=== PATIENT | female | born 1955 | race Caucasian/White ===

== ENCOUNTER 2017-06-05 12:00 | Inpatient (IN) | payer OTHER ==
[2017-06-05 12:40] VITALS: BMI 35.0
[2017-06-09] MEDS ORDERED: Fentanyl 100 MCG/2 ML VIAL ONE ×4 (06:15→11:22)
[2017-06-09] MEDS ORDERED: Midazolam HCl 2 mg/2 ml Vial ONE (06:15)
--- NOTE | 2017-06-09 06:30 | HP ---
DATE OF ADMISSION: 06/09/2017 CHIEF COMPLAINT: Pelvic pressure and stress urinary incontinence. HISTORY OF PRESENT ILLNESS: This is a 62-year-old P2 with a past medical history significant for type 2 diabetes, hyperlipidemia, chronic hypertension, history of coronary artery disease, and hypothyroidism who presented complaining of severe stress urinary leakage as well as pelvic pressure in vaginal vault. She was found to have uterovaginal prolapse as well as cystocele and rectocele stage 3. The patient attempted relief of incontinence with Myrbetriq as well as ring pessary; however, both of these failed. She desires to undergo definitive surgery. She has been cleared by Cardiology as well as primary care provider. Her last hemoglobin A1c was 8.3. The patient currently takes insulin twice daily and Januvia and has moderate control. PAST MEDICAL HISTORY: Type 2 diabetes, hyperlipidemia, chronic hypertension, coronary artery disease in 2012, hypothyroidism. Last echo dated 2015 showed EF of 65% to 70%, normal left ventricular wall thickness and size, mild aortic regurgitation. PAST SURGICAL HISTORY: x1, tubal ligation, cholecystectomy, and gastric sleeve 2009. FAMILY HISTORY: Diabetes, heart disease, stroke, hypertension, and renal failure. MEDICATIONS: Astepro 1 drop in each nostril daily, Flonase one spray intranasal daily, multivitamin, vitamin D, Krill oil, B complex, probiotic, Colace b.i.d., baby aspirin, valsartan 160 mg p.o. daily, Westhroid 66 mg p.o. daily, Lipitor 40 mg p.o. at bedtime, iron, Prempro 0.625-5 mg daily, Januvia 100 mg p.o. daily, Lantus 25 units q.a.m. and 5 units q.p.m. p.r.n. blood sugar greater than 200. ALLERGIES: HYDROCODONE causes difficulty breathing. SOCIAL HISTORY: Negative x3. Currently . PHYSICAL EXAMINATION: VITAL SIGNS: Blood pressure 120/60, weight 201, height 63, BMI is 35.6. GENERAL: No acute distress. LUNGS: Clear to auscultation bilaterally. ABDOMEN: Soft, nontender, nondistended. EXTREMITIES: No edema, cyanosis or clubbing. PELVIC: Deferred to the OR. ASSESSMENT AND PLAN: A 62-year-old P2 with symptomatic uterovaginal prolapse, cystocele and rectocele as well as genuine stress incontinence demonstrated on urodynamic study. The patient was found to leak urine with cough and Valsalva, did not have evidence of overactive bladder and UPPs were 18 and 20. I have counseled the patient on surgical intervention with robotic-assisted total laparoscopic hysterectomy, bilateral salpingo-oophorectomy, vaginal vault suspension with uterosacral, TVT mid-urethral sling, anterior-posterior repair and cystoscopy. I counseled the patient the risks of surgery including bleeding , transfusion, infection, damage to surrounding structure including the bladder and ureter discussed risk of urinary urgency postoperatively and need for catheterization. We also discussed the risk of recurrent prolapse following surgery. The patient understands and wishes to proceed. Preoperative holding of Lantus the night before surgery in the a.m., was instructed to the patient, and she has also been off her aspirin for 4 days. She has been cleared by Cardiology and primary care. Secondary to patient's severe allergy to HYDROCODONE, plan to use On-Q pain pump for postoperative pain relief. The patient will follow up with me in 2 weeks postoperative time. OMAYRA
[2017-06-09] MEDS ORDERED: Ropivacaine 0.2% 550 ML 550 ML NERVE BLCK SCH (07:06)
[2017-06-09] MEDS ORDERED: Ropivacaine HCl/PF 750 ML in Premix Bag 1 BAG NERVE BLCK SCH (07:30)
[2017-06-09] MEDS ORDERED: Lidocaine 2% PF 10 ML AMP (For Epidural Use) ONE (07:41)
[2017-06-09] MEDS ORDERED: Glycopyrrolate 0.2 MG/ML 5 ML SYRINGE ONE (07:41)
[2017-06-09] MEDS ORDERED: Propofol 200 MG/20 ML VIAL ONE (07:41)
[2017-06-09] MEDS ORDERED: Dexamethasone 20 MG/5 ML VIAL ONE (07:41)
[2017-06-09] MEDS ORDERED: ePHEDrine/0.9% NaCl/PF SYRINGE 50 mg/10 ml ONE (07:41)
[2017-06-09] MEDS ORDERED: traMADol HCl 50 MG TAB PO PRN (07:42)
[2017-06-09] MEDS ORDERED: diphenhydrAMINE HCl 25 MG CAP PO PRN (07:42)
[2017-06-09] MEDS ORDERED: Ondansetron HCl/PF 4 MG/2 ML Vial IVP PRN ×2 (07:42→10:58)
[2017-06-09] MEDS ORDERED: Promethazine HCl 25 MG/ML VIAL IM PRN ×2 (07:42→10:58)
[2017-06-09] MEDS ORDERED: Bisacodyl 10 MG SUPP PR PRN (07:42)
[2017-06-09] MEDS ORDERED: Zolpidem Tartrate 5 MG TAB PO PRN (07:42)
[2017-06-09] MEDS ORDERED: Acetaminophen 325 MG TAB PO PRN (07:42)
[2017-06-09] MEDS ORDERED: Dextrose 5% in Water 1,000 ML IV PRN (07:47)
[2017-06-09] MEDS ORDERED: Metoprolol Tartrate 5 MG/5 ML VIAL IVP PRN (07:47)
[2017-06-09] MEDS ORDERED: Insulin Regular 300 UNITS/3 ML VIAL SC PRN (07:47)
[2017-06-09] MEDS ORDERED: Dextrose 50% Abboject 50 ML SYRINGE SLOW IVP PRN (07:47)
[2017-06-09] MEDS ORDERED: Lidocaine 1% w/Epinephrine 1:200K 30 ML VIAL ONE (08:06)
[2017-06-09] MEDS ORDERED: Bupivacaine PF 0.5% 30 ML VIAL ONE (08:55)
[2017-06-09] MEDS ORDERED: Furosemide 20 MG/2 ML VIAL ONE (09:58)
[2017-06-09] MEDS ORDERED: Promethazine HCl 25 MG/ML VIAL SLOW IVP PRN (10:58)
--- NOTE | 2017-06-09 12:03 | OP ---
DATE OF OPERATION: 06/09/2017 PREOPERATIVE DIAGNOSES: 1. Incomplete uterovaginal prolapse, symptomatic. 2. Cystocele. 3. Rectocele. 4. Genuine stress incontinence. POSTOPERATIVE DIAGNOSES: 1. Incomplete uterovaginal prolapse, symptomatic. 2. Cystocele. 3. Rectocele. 4. Genuine stress incontinence. PROCEDURE: Robotic assisted total laparoscopic hysterectomy, bilateral salpingo-oophorectomy, utero sacral ligament suspension, posterior colporrhaphy, midurethral sling and cystoscopy and ON-Q pump p lacement. ANESTHESIA: General endotracheal. ATTENDING SURGEON: Angelina Osorio M.D. BAGGAGE HANDLING SUPERVISOR: Karen Harris M.D. ESTIMATED BLOOD LOSS: 50 mL. INTRAVENOUS FLUIDS: 1400 mL crystalloid. URINE OUTPUT: 150 mL of clear urine. PATHOLOGY: Uterus, cervix, bilateral fallopian tubes and ovaries. COMPLICATIONS: None. DRAINS: Pedersen catheter. FINDINGS: On exam under anesthesia, a mobile small uterus was noted, sounded to 8 cm. On intra-abd ominal survey the upper abdomen was normal. There was a strand of adhesions from the mid uterus ant eriorly to the anterior abdominal wall. There was no other significant adhesions. The fallopian tu bes and ovaries were normal bilaterally. On cystoscopic survey there were no bladder masses or lesi ons. There was no injury or cystotomy. The sling did not enter into the bladder and correct placem ent was noted. There was bilateral ureteral efflux noted as well. Vaginal packing was placed at th e conclusion of the procedure. OPERATIVE TECHNIQUE: The patient was taken to the operating room where general anesthesia was obtai megan without difficulty. The patient was prepped and draped in a sterile fashion in the dorsal litho alicia position. A speculum was placed in the vagina. Pedersen catheter was placed in the bladder. The anterior lip of the cervix was grasped with a single tooth tenaculum. The cervix was dilated and s ounded to 8 cm. The SUGAR manipulator was assembled with a 4 cm colpotomizer ring and an 8 cm tip. The manipulator tip was inserted to the uterine fundus. The tip balloon was inflated, instruments w ere removed out of the vagina and the colpotomizer ring was advanced snuggly around the cervix and t he colpotomizer balloon was inflated, legs were placed in low lithotomy. Attention was turned to th e abdomen. An incision was made in the umbilicus after infiltrating with 1% lidocaine with epinephr ine and a Veress needle was passed into the abdomen noting an opening pressure of 0 mmHg. Pneumoper itoneum was obtained without difficulty. The 12 mm trocar was then inserted into the abdomen and co nfirmed placement with the robotic camera. Steep Trendelenburg was obtained, right and left lower q uadrant 8 mm robotic trocars were placed after infiltrating with 1% lidocaine with epinephrine under direct visualization. The right upper quadrant 11 mm port was placed under direct visualization as well as an clinical trials assistant port after infiltrating with anesthetic. The robot was undocked. The right r obotic arms contained a monopolar scissor, the left robotic arm contained a fenestrated bipolar. e surgeon console to control and the adhesions in the midline from the anterior abdominal wall to th e uterus was cauterized and transected. The right uterosacral ligament was isolated and identified and tension was placed medially on the uterosacral, ureter was identified on the right pelvic sidewa ll transperitoneally and a releasing incision on the uterosacral was made with the scissors and atte ntion was then placed inside the incision to stretch the incision and to montrell the area of the vault suspension. The same releasing incision was made in the mid 2/3 of the uterosacrals on the left opal e using the scissors and traction countertraction on the incision. The right fallopian tube and ova ry were then grasped and elevated. The ureter was again noted to be running away from the infundibu lopelvic ligament. The right IP was cauterized multiple times and transected and the peritoneum was transected down to the round ligament that was cauterized and transected. The anterior leaf of bro ad ligament was opened up, incising with the scissors and undermining with the fenestrated and the b ladder flap was then created without difficulty and there was minimal scarring from the patient's pr ior . Each incision that was made identified a clear window transperitoneally and to ensur e no bladder injury was encountered. The pubocervical fascia was then scored on and dissected down distally. The vessels on the right side were then skeletonized and the posterior leaf of the perito neum was dropped down to the level of the uterosacral. The left fallopian tube and ovary were then grasped and elevated. The ureter was identified and noted to be running on the pelvic sidewall away from the IP. The IP was cauterized and transected hugging the ovary. This was taken down in the m esosalpinx and mesovarium to the level of the round ligament, incising with the scissors and cauteri zing with the fenestrated. The round was then cauterized and transected and the anterior leaf of th e broad ligament was opened up down to the level of the previous incision from the contralateral opal e. The posterior leaf of the broad ligament was dropped down to the level of the uterosacral with t he scissors and the retroperitoneum was then dissected through, hugging on the uterus to dissect kt und and skeletonize the uterine vessels. The bladder flap was then adequately taken down anteriorly and the vessels were cauterized and transected on the left side. The vessels were then cauterized and transected on the right side. Anterior colpotomy was performed and carried around laterally. T he fenestrator was flipped underneath the lateral apices and cauterized and then incised with the sc issors, a posterior colpotomy was performed, preserving the attachment of the uterosacral to the pos terior vaginal wall. Once the uterus had been transected the uterus was removed into the vagina eas ronaldo. Irrigation was performed of the pelvis. Hemostasis was achieved in the vaginal cuff with the fenestrated and the scissors were traded out for the needle pile driver engineer. The Stratafix suture was passed into the abdomen and the vaginal cuff was closed in a running fashion incorporating the vaginal muc wilman and posterior peritoneum into each bite and the vaginal cuff closure was noted to be excellent. The incision was then run back for several sutures to maintain tension on the giovany suture and hemos tasis was noted at the cuff. Irrigation was performed once again and a 0 Ethibond was then passed i nto the abdomen after that needle had been removed and the right uterosacral ligament was identified using the uterus and the vagina as a way to manipulate into the posterior cul-de-sac and highlight those ligaments. A releasing incision was grasped and the 0 Ethibond on the left side was passed fr om medial to lateral through the incision at the most distal point and was then threaded through aga in the releasing incision more proximally. The 0 Ethibond was then run through the insertion of the uterosacral onto the vaginal cuff, ensuring that pubocervical fascia was incorporated and an anteri or stitch was then placed, noting that the bladder was well away and this stitch was tied down secur dayanara with excellent tension on the suture. The same procedure was then carried out on the patient's right side, placing the 0 Ethibond through the releasing incision x2 with the same suture and then r unning the suture through the posterior cuff and uterosacral attachment as well as the anterior pubo cervical fascia and then tied tautly. The needle was then removed out of the abdomen. Irrigation w as performed of the pelvis. Hemostasis was noted to be excellent. The On-Q single lumen pain pump was then threaded into the posterior cul-de-sac and the bowel was placed over this, a test dose of 1 % lidocaine with epinephrine was performed noting it to be free flowing. This was then secured to t he abdomen. All instruments were removed out of the abdomen. The robot was undocked. The fascia o f the umbilical port was closed with an 0 Vicryl in a doisrb-zi-zfyur fashion and the skin was close d with 4-0 Monocryl in a subcuticular fashion and Dermabond was applied. Attention was then turned to the vagina. The posterior wall was noted to continue to have a signifi cant rectocele. Therefore, the hymenal ring laterally was grasped and pulled the rectocele taut, 1% lidocaine with epinephrine was infiltrated into the vaginal rectal space and the Metzenbaums were u sed to incise the hymenal ring and undermine the vaginal mucosa making an incision. The Metzenbaums were then used to dissect the rectovaginal fascia off of the vagina and a fluffed out Ray-Yousuf was a lso used to bluntly dissect once the correct plane had been identified. This was taken up to the le mckinley of the vaginal apex bilaterally and the lateral edges of the vaginal mucosa were grasped with Al lis to apply traction countertraction to aid in the dissection. Several defects in the fascia were very clear and these were reapproximated with a 2-0 Vicryl in a htoxvi-yr-pmlam fashion. The rest o f the rectovaginal fascia was reapproximated in a pursestring fashion, noting excellent tensioning t o the area. A rectal exam was performed, no stitches were noted to be placed into the rectum and an excellent strength had been reinforced on over the rectum from this repair. Several U stitches wer e placed over the peritoneum and the introitus and hemostasis was noted of the posterior colporrhaph y. The vaginal mucosa posteriorly was then reapproximated with 0 Vicryl in a running fashion incorp orating some of the rectovaginal fascia in order to prevent a fluid accumulation. At that time, the anterior compartment was evaluated. There was minimal cystocele that was present. Therefore, ante rior colporrhaphy was not necessary. The mid urethra was identified and Allis clamps were placed in the midline close to the urethral meatus and laterally approximately 3 cm inward and tension was pl aced on these Allis's and this space was infiltrated with 1% lidocaine with epinephrine. An incisio n was made in the mid urethra and Allis clamps were placed on the vaginal mucosa. The Metzenbaums w ere used to dissect the retropubic space bilaterally. At that time, the legs were placed in a low l ithotomy position and the pubic exit sites approximately 2 fingerbreadths laterally to the midline w ere identified and marked with a marker. This space was hydrodissected with 50 mL of saline and a 2 2 gauge needle bilaterally. At that time, the [employer] fit sling was opened and was assembled with the retropubic needle, the patient's right side was inserted initially placing th e needle just behind the pubic bone and aiming towards the patient's shoulder with a horizontal orie ntation and this was inserted up through the retropubic space and exited out of the site we had prev iously marked. A hemostat then grasped the blue end of the mesh to hold it in place. The needle wa s removed. The contralateral side was assembled on the needle and the same procedure was performed on the patient's left side. Hemostat then grasped that side and the needle was removed out of the p atient. At that time, the Pedersen catheter was removed and a 70 degree cystoscope was assembled and i nserted into the bladder. There were no bladder masses, lesions or injuries noted. The lateral opal ewall of the bladder was evaluated putting tension on the sling bilaterally and no cystotomy was enc ountered during the sling placement. The ureters were then evaluated and took a prolonged period to efflux urine; however, the patient does have chronic kidney impairment and the patient was placed i n reverse Trendelenburg and 10 mg of Lasix was given to the patient and subsequently bilateral urete ral efflux was noted that was vigorous. The cystoscope was removed out of the patient and the Pedersen catheter was replaced. At that time, the mesh was pulled to tension on the mid urethra and the wesley stic portion in the middle of it was cut. A right-angle was used to allow the mesh to come taut up against the urethra and the plastic coverings were removed off of the mesh and appropriate tension w as made on the urethra. The right angle was then removed. The incision was irrigated with saline a nd the incision was closed with a 2-0 Vicryl in a running fashion. Hemostasis was noted. A saline moist Vag pack was then placed. The mesh was cut out of the exit site of the pubic bone and Dermabo nd was placed over these. The patient tolerated the procedure well. Sponge, lap, and needle counts were correct x2. The patient was taken to recovery room in stable condition. The patient received Ancef 2 grams prior to procedure.
[2017-06-09] MEDS: Docusate (Surfak) 240 MG CAP PO SCH ×2 (12:18→20:34)
[2017-06-09] MEDS: Lactated Ringer's 1,000 ML IV SCH ×2 (13:43→21:47)
[2017-06-09] MEDS: Acetaminophen 1,000 MG in Premix Bag 1 BAG IVPB SCH ×2 (13:43→19:10)
[2017-06-09] MEDS: Ketorolac Tromethamine 30 MG/ML VIAL IVP SCH ×2 (13:43→19:10)
[2017-06-09] MEDS: Insulin Regular 300 UNITS/3 ML VIAL SC PRN ×2 (19:11→20:41)
[2017-06-10] MEDS: Acetaminophen 1,000 MG in Premix Bag 1 BAG IVPB SCH ×2 (00:14→06:25)
[2017-06-10] MEDS: Ketorolac Tromethamine 30 MG/ML VIAL IVP SCH ×2 (00:15→06:24)
[2017-06-10] MEDS: Insulin Regular 300 UNITS/3 ML VIAL SC PRN ×2 (00:22→17:13)
[2017-06-10] MEDS: Lactated Ringer's 1,000 ML IV SCH (05:08)
[2017-06-10 05:32] LABS: Hematocrit 31.2 % (36.0-47.0); Mean Platelet Volume 8.2 fL (7.4-10.4); Red Blood Cell (RBC) Count 3.27 mill/uL (4.20-5.40); White Blood Cell (WBC) Count 10.5 thou/uL (4.8-10.8)
[2017-06-10] MEDS: Docusate (Surfak) 240 MG CAP PO SCH ×2 (08:22→21:30)
[2017-06-10] MEDS ORDERED: Insulin Detemir 100 UNITS/ML 10 UNITS in Pre-Filled Syringe 1 EACH SC SCH (09:45)
[2017-06-10] MEDS: Ibuprofen 600 MG TAB PO SCH ×2 (10:34→17:56)
[2017-06-10] MEDS: traMADol HCl 50 MG TAB PO PRN ×2 (12:30→18:22)
[2017-06-10] MEDS: Simethicone Chewable 80 MG TAB PO PRN ×2 (12:36→21:30)
[2017-06-10] MEDS ORDERED: Atorvastatin Calcium 40 MG TAB PO SCH (21:00)
[2017-06-11] MEDS: traMADol HCl 50 MG TAB PO PRN ×3 (00:23→13:51)
[2017-06-11] MEDS: Ibuprofen 600 MG TAB PO SCH ×2 (02:49→12:33)
[2017-06-11] MEDS: Insulin Regular 300 UNITS/3 ML VIAL SC PRN ×2 (06:24→12:33)
[2017-06-11] MEDS ORDERED: Oxybutynin Chloride 5 MG TAB PO PRN (08:24)
[2017-06-11] MEDS: Docusate (Surfak) 240 MG CAP PO SCH (08:55)
[2017-06-11] MEDS ORDERED: Insulin Detemir 100 UNITS/ML 10 UNITS in Pre-Filled Syringe 1 EACH SC SCH (09:00)
[2017-06-11] MEDS ORDERED: Alogliptin Benzoate 25 MG TABLET PO SCH (09:00)
[2017-06-11] MEDS ORDERED: Valsartan 80 MG TAB PO SCH (09:00)
[2017-06-11 11:37] VITALS: BP 157/69; TEMP 98.3
--- NOTE | 2017-06-11 19:32 | PRG ---
DATE OF SERVICE: 06/11/2017 TIME OF VISIT: Approximately 8:00 a.m. SUBJECTIVE: Overnight, patient has felt well. She did have some nausea overnight. No vomiting. H as tolerated a regular diet and ambulated. Pain is well controlled on tramadol and ibuprofen. She failed her voiding trial x2 yesterday and was dispositioned for overnight observation with repeat vo iding trial on postoperative day #2. She reports flatus and no bowel movements, no vaginal bleeding . OBJECTIVE: VITAL SIGNS: Blood pressure 153/67, pulse is 57, respirations 20, pulse ox 97% on room air, tempera ture 98.9. Output in the last 24 hours is 2900 mL. GENERAL APPEARANCE: No acute distress. CARDIAC: Regular rate and rhythm. LUNGS: Clear to auscultation bilaterally. ABDOMEN: Soft, appropriately tender, nondistended with bowel sounds that are positive. Incisions a re clean, dry, and intact. EXTREMITIES: No edema, cyanosis or clubbing. LABORATORY DATA: Blood sugars overnight have been 262, 171, and 177 fasting this morning. ASSESSMENT AND PLAN: This is a 62-year-old status post robotic assisted TLH BSO vault suspension, p osterior repair TVT sling and cystoscopy postoperative day #2. Vital signs are stable. The patient is afebrile. Her pain is controlled on p.o. tramadol and ibuprofen that she will continue at home. She has met all her postoperative milestones and we will have a repeat voiding trial this a.m. Sumanth lowery, the results of the voiding trial today where the patient was back filled with 200 mL of salin e and she was given 30 minutes to void; however, was not able to void any. She was then straight ca theterization revealing 400 mL in the bladder and the Pedersen catheter was replaced at that time. She is dispositioned for discharge with prescriptions for tramadol, ibuprofen, Macrobid prophylaxis, Py ridium, and oxybutynin p.r.n. bladder pain. She will have a voiding trial in my office on postopera tive day 7. She will call to make this appointment. She was given ER warnings as well.
--- OUTSIDE RECORDS SUMMARY | 2017-06-15 11:08 | XMS | Clinical Summary ---
:1955 Author Organization [facility] Address [address] [place] [address] Phone Care Team Providers Name Role Phone , Primary Care Provider Unavailable Allergies Not on File Current Medications Not on file Active Problems Not on file Social History Tobacco Use Types Packs/Day Years Used Date Never Assessed Sex Assigned at Date Recorded Not on file Last Filed Vital Signs Not on file Plan of Treatment Not on file Results Not on filefrom Last 3 Months
== END 2017-06-11 13:59 | disposition home or self-care (01) | DRG 743 ==
LOC: SURG A 06-09 05:55 → 3SE 06-09 10:52
PROVIDERS: ADMIT Student in an Organized Health Care Education/Training Program; ATTEND Student in an Organized Health Care Education/Training Program
PROC: 0UT9FZZ Resection of Uterus, Via Natural or Artificial Opening With Percutaneous Endoscopic Assistance (ICD-10-PCS; principal; 2017-06-09)
PROC: 0TSD4ZZ Reposition Urethra, Percutaneous Endoscopic Approach (ICD-10-PCS; 2017-06-09)
PROC: 0UT2FZZ Resection of Bilateral Ovaries, Via Natural or Artificial Opening With Percutaneous Endoscopic Assistance (ICD-10-PCS; 2017-06-09)
PROC: 0UT7FZZ Resection of Bilateral Fallopian Tubes, Via Natural or Artificial Opening With Percutaneous Endoscopic Assistance (ICD-10-PCS; 2017-06-09)
PROC: 0TSD4ZZ Reposition Urethra, Percutaneous Endoscopic Approach (ICD-10-PCS; 2017-06-09)
PROC: 8E0W4CZ Robotic Assisted Procedure of Trunk Region, Percutaneous Endoscopic Approach (ICD-10-PCS; 2017-06-09)
PROC: 0JQC3ZZ Repair Pelvic Region Subcutaneous Tissue and Fascia, Percutaneous Approach (ICD-10-PCS; 2017-06-09)
DX: N81.2 Incomplete uterovaginal prolapse (principal); I10 Essential (primary) hypertension; N39.3 Stress incontinence (female) (male); E11.9 Type 2 diabetes mellitus without complications; Z98.84 Bariatric surgery status; Z88.5 Allergy status to narcotic agent; Z88.6 Allergy status to analgesic agent; Z83.3 Family history of diabetes mellitus; Z82.3 Family history of stroke; Z82.49 Family history of ischemic heart disease and other diseases of the circulatory system; Z84.1 Family history of disorders of kidney and ureter
CPT/HCPCS: 36415; 36416; 82565; 85027; 88307; 96374; A4216; A4306; A4353; C1781; J0131; J1100; J1815; J1885; J1940; J2001; J2250; J2270; J2405; J2704; J2795; J3010; S0020

== ENCOUNTER 2017-06-05 12:08 | Outpatient (CLI) | payer OTHER ==
[2017-06-05 12:51] LABS: Hematocrit 34.4 % (36.0-47.0); Mean Platelet Volume 8.3 fL (7.4-10.4); Red Blood Cell (RBC) Count 3.64 mill/uL (4.20-5.40); White Blood Cell (WBC) Count 6.2 thou/uL (4.8-10.8)
[2017-06-05 13:10] LABS: Anion Gap 10 mmol/L (10-20); BUN (Urea Nitrogen) 22 mg/dL (9.8-20.1); Calc. Creatinine Clearance 0 mL/min (70-130); Calcium 9.3 mg/dL (7.8-10.44); Carbon Dioxide 26 mmol/L (23-31); Chloride 106 mmol/L (98-107); Estimated GFR-MDRD 47
== END 2017-06-05 12:09 | disposition home or self-care (01) ==
LOC: LABBT 12:08
PROVIDERS: ATTEND Student in an Organized Health Care Education/Training Program
DX: Z01.818 Encounter for other preprocedural examination (principal); N39.3 Stress incontinence (female) (male); N81.10 Cystocele, unspecified; N81.6 Rectocele
CPT/HCPCS: 80048; 85027; 86850; 86900; 86901; 87081; 93005; 93010

== ENCOUNTER 2017-08-04 08:08 | Outpatient (CLI) | payer OTHER ==
--- NOTE | 2017-08-04 10:37 | MMO ---
BILATERAL SCREENING MAMMOGRAM: HISTORY: A 60-year-old female. Routine screening mammography. COMPARISON: 05/09/15, 03/30/14, and 06/18/16. TECHNIQUE: CC and MLO views of both breasts are submitted for interpretation. This patient's mammogram is revie wed with the assistance of computer-aided detection. FINDINGS: Breasts are composed of scattered fibroglandular tissue. Bilaterally, no suspicious dominant mass, a rchitectural distortion, or suspicious calcification. Benign-appearing calcifications in the right b reast. IMPRESSION: BI-RADS category 2 - benign findings. RECOMMENDATION: Annual mammogram. POS: [facility]
== END 2017-08-04 08:09 | disposition home or self-care (01) ==
LOC: SCSMAMMO 08:08
PROVIDERS: ATTEND Family Medicine
DX: Z12.31 Encounter for screening mammogram for malignant neoplasm of breast (principal)
CPT/HCPCS: 77067; G0202

== ENCOUNTER 2018-08-13 08:08 | Outpatient (CLI) | payer OTHER ==
--- NOTE | 2018-08-13 09:58 | MMO ---
BILATERAL SCREENING MAMMOGRAM: Date: 08/13/18 HISTORY: 63-year-old female. Routine screening mammography. COMPARISON: 06/18/16, 08/04/17, 05/09/15. TECHNIQUE: CC and MLO views of both breasts are submitted for interpretation. This patient's mammogram was reviewed with the assistance of computer-aided detection. FINDINGS: The breasts are composed of scattered fibroglandular tissue. Bilaterally, no suspicious dominant mass , architectural distortion, or suspicious calcifications. There are benign-appearing calcifications i n the right breast. IMPRESSION: BIRADS 2: Benign Finding(s) RECOMMENDATION: Annual mammogram. POS: [facility]
== END 2018-08-13 08:09 | disposition home or self-care (01) ==
LOC: SCSMAMMO 08:08
PROVIDERS: ATTEND Family Medicine
DX: Z12.31 Encounter for screening mammogram for malignant neoplasm of breast (principal)
CPT/HCPCS: 77067

== ENCOUNTER 2018-11-08 10:05 | Outpatient (CLI) | payer MEDICARE, OTHER ==
--- NOTE | 2018-11-08 13:03 | BD ---
BONE DENSITOMETRY: INDICATION: A 63-year-old female for postmenopausal osteoporosis screening. FINDINGS: Lumbar Spine: BMD (g/cm2) L1 1.243 T-Score: 2.3 L2 1.327 T-Score: 2.7 L3 1.347 T-Score: 2.4 L4 1.476 T-Score: 3.8 L1-L4 1.353 T-Score: 2.8 Femoral Neck: 0.863 T-Score: 0.1 Total Femur: 1.188 T-Score: 2.0 Impression: Bone mineral density of the lumbar spine and femoral neck are within normal range. POS: [facility]
== END 2018-11-08 10:06 | disposition home or self-care (01) ==
LOC: BICMAMMO 10:05
PROVIDERS: ATTEND Family Medicine
DX: Z13.820 Encounter for screening for osteoporosis (principal); Z78.0 Asymptomatic menopausal state
CPT/HCPCS: 77080

== ENCOUNTER 2018-11-23 09:03 | Outpatient (CLI) | payer MEDICARE, OTHER ==
--- NOTE | 2018-11-23 11:58 | MRI ---
MRI LEFT SHOULDER WITHOUT CONTRAST: HISTORY: M25.512, acute pain of left shoulder. Shoulder pain for 1 year. COMPARISON: None. FINDINGS: BICEPS TENDON: Moderate extraarticular biceps tenosynovitis. The intraarticular biceps tendon has extensive tendino sis interstitial-type tearing. LABRUM: There is a severe labral tear extending to the undersurface of biceps tendon. There is also posterio r inferior labral tearing. ROTATOR CUFF: There is moderate tendinosis of the supraspinatus tendon with interstitial-type tearing at the footpr int. There is some delamination along the myotendinous junction. Mild bursal surface fraying of the supraspinatus and infraspinatus tendons. The subscapularis is intact. No full-thickness rupture. BONES: There is advanced degenerative change of the acromioclavicular joint. There is a type I acromion. N ormal glenoid version. MUSCLES: Muscle bulk is normal. No significant atrophy of the musculature. There is, however, mild edema wit hin the teres minor muscle. SOFT TISSUES: There is extensive fibrosis of the rotator interval. IMPRESSION: 1. Isolated edema within the teres minor muscle can be seen with quadrilateral space syndrome or tra ction of the axillary nerve. No significant atrophy. 2. Superior labral tear extending to the undersurface of the biceps tendon. There is also posterior inferior labral tear. 3. Extensive biceps tendosynovitis as well as intraarticular interstitial tearing. 4. Moderate tendinosis of the supraspinatus tendon with low-grade interstitial-type tearing with del amination anteriorly along the myotendinous junction. No full-thickness perforation. 5. Moderate subacromial subdeltoid bursa effusion. POS: [facility]
== END 2018-11-23 09:04 | disposition home or self-care (01) ==
LOC: SCSMRI 09:03
PROVIDERS: ATTEND Orthopaedic Surgery
DX: M25.512 Pain in left shoulder (principal); S46.912A Strain of unspecified muscle, fascia and tendon at shoulder and upper arm level, left arm, initial encounter; M75.22 Bicipital tendinitis, left shoulder; M25.412 Effusion, left shoulder

== ENCOUNTER 2019-03-22 08:26 | Outpatient (CLI) | payer MEDICARE, OTHER ==
[2019-03-22] MEDS ORDERED: Iopamidol 370 76% 100 ML VIAL ONE (09:00)
--- NOTE | 2019-03-22 10:07 | CT ---
Exam: POSTCONTRAST SOFT TISSUE NECK CT: HISTORY: Soft tissue mass. Right posterior neck symptoms. Evaluate for mass versus lipoma. TECHNIQUE: Postcontrast soft tissue neck CT is performed in the axial plane. Reformatted images are s ubmitted for dictation. FINDINGS: Because brain parenchyma and orbits are unremarkable. Adequate aeration of the sinuses and mastoid air cells. Nasopharynx is unremarkable. Limited evaluation the oral cavity due to dental amalgam artifact. No obvious masses. Midline fatty r aphae of the tongue is preserved. Epiglottis has a normal caliber. The supraglottic, glottic and subglottic larynx is unremarkable. No prevertebral soft tissue swelling. Parapharyngeal fat is maintained. Symmetric attenuation of the parotid and submandibular glands. Symmetric attenuation of cleidomastoid muscles. Unremarkable thyroid gland. No evidence of lymphadenopathy by size criteria. Upper mediastinum and lung apices are unremarkable. Cervical spine vertebral body height is maintained. No fracture. Straightening of normal cervical mary dosis is presumed to be positional. No evidence of high-grade central canal stenosis or high-grade neural foraminal narrowing. There is a radiolucent marker along the posterior right neck. At the level of the marker, no mass, ly mphadenopathy, lipoma or hematoma. IMPRESSION: No evidence of mass or lymphadenopathy throughout the neck, including the region of concern (posterio r right neck). Transcribed Date/Time: 03/22/2019 10:30 AM
== END 2019-03-22 08:27 | disposition home or self-care (01) ==
LOC: SCSCT 08:26
PROVIDERS: ATTEND Family Medicine
DX: M79.89 Other specified soft tissue disorders (principal)
CPT/HCPCS: 70491; 82565; Q9967

== ENCOUNTER 2019-08-19 15:20 | Outpatient (CLI) | payer MEDICARE, OTHER ==
--- NOTE | 2019-08-19 16:25 | MRI ---
MR OF THE RIGHT KNEE WITHOUT CONTRAST: 08/19/18 INDICATION: History of right knee pain after stepping up; felt like something ripped apart behind knee. No surg katarina or prior MR examination. FINDINGS: The MCL, ACL, PCL, LCLC and extensor mechanism are intact. There are small marginal osteophytes affecting the major compartments of the left knee. There is mode rate chondrosis involving the medial femorotibial and patellofemoral compartments. Focal full thickne ss articular cartilage fissure is seen involving the medial femoral condyle measuring 4 mm on image 2 0 of series 16. Focal full thickness defect is seen involving the lateral femoral trochlea on image 1 6 of series 9 measuring 3 mm. There is mild diffuse chondral thinning of the lateral femorotibial com partment. There is an obliquely oriented radial tear involving the posterior horn and posterior root of the med ial meniscus with partial medial extrusion. Lateral meniscus is intact. IT band and popliteus appear within normal limits. IMPRESSION: 1. Mild osteoarthrosis o the right knee. 2. Medial meniscal tear. POS: [facility]
== END 2019-08-19 15:21 | disposition home or self-care (01) ==
LOC: TBSIIMAG 15:20
PROVIDERS: ATTEND Family Medicine
DX: M23.91 Unspecified internal derangement of right knee (principal); M17.11 Unilateral primary osteoarthritis, right knee; S83.241A Other tear of medial meniscus, current injury, right knee, initial encounter